=== PATIENT | female | born 2000 | race Hispanic/Latino ===

== ENCOUNTER 2022-05-08 03:08 | Emergency (ER) | payer SELFPAY ==
[2022-05-08 03:32] LABS: #Eosinphils 0.1 thou/uL (0.0-0.7); #Lymphocytes 2.4 thou/uL (1.20-3.40); #Monocytes 0.6 thou/uL (0.11-0.59); #Neutrophils 3.8 thou/uL (1.40-6.50); %Basophils 0.4 % (0.0-1.0); %Eosinophils 1.9 % (0.0-10.0); %Lymphocytes 33.9 % (28.0-48.0); %Monocytes 8.4 % (0.0-4.0); %Neutrophils 55.4 % (31.0-61.0); Hemoglobin 12.7 g/dL (12.0-16.0); Mean Corpuscular HGB CONC 34.3 g/dL (32.0-36.0); Mean Corpuscular Hemoglobin 30.5 pg (25.0-35.0); Mean Corpuscular Volume 89.1 fl (78.0-98.0); Mean Platelet Volume 7.1 fL (7.4-10.4); Platelet Count 260 10x3/uL (130-400); RBC Distribution Width 11.7 % (11.5-14.5); Red Blood Cell (RBC) Count 4.16 mill/uL (4.00-5.20); White Blood Cell (WBC) Count 6.9 10x3/uL (4.8-10.8)
[2022-05-08 03:42] LABS: BHCG - Serum POSITIVE (NEGATIVE); Pregs Control Background? CLEAR/WHITE (CLR/WHITE); Pregs Control Bar Appear? YES (CONTROL BAR)
[2022-05-08 03:55] LABS: ALT (SGPT) 22 U/L (8-55); AST (SGOT) 27 U/L (5-34); Alkaline Phosphatase 61 U/L (40-100); Anion Gap 15 mmol/L (10-20); BUN (Urea Nitrogen) 9 mg/dL (7.0-18.7); Bilirubin, Total 0.3 mg/dL (0.2-1.2); Calc. Creatinine Clearance 0 mL/min (70-130); Calcium 9.2 mg/dL (7.8-10.44); Carbon Dioxide 18 mmol/L (22-29); Chloride 109 mmol/L (98-107); Estimated GFR 130; Globulin 3.4 g/dL (2.4-3.5); Glucose 101 mg/dL (70-105); Potassium 3.8 mmol/L (3.5-5.1); Protein, Total 7.4 g/dL (6.0-8.3); Sodium 138 mmol/L (136-145)
[2022-05-08] MEDS ORDERED: Ondansetron PF 4 MG/2 ML Vial ONE (05:44)
[2022-05-08] MEDS ORDERED: Morphine 4 MG/ML VIAL ONE (05:44)
[2022-05-08] MEDS ORDERED: Diphenoxylate HCl/Atropine Tablet ONE (05:44)
[2022-05-08] MEDS ORDERED: Ketorolac Tromethamine 30 MG/ML VIAL ONE (05:44)
[2022-05-08] MEDS ORDERED: Carboprost 250 MCG/ML AMP IM SCH (05:45)
== END 2022-05-08 08:59 | disposition home or self-care (01) ==
LOC: ERS 03:08
DX: O03.9 Complete or unspecified spontaneous abortion without complication (principal)
CPT/HCPCS: 36415; 76856; 80053; 84702; 84703; 85025; 86850; 86900; 86901; 93976; 96372; 96374; 96375; J1885; J2270; J2405; J3490